=== PATIENT | male | born 2000 | race Caucasian/White ===

== ENCOUNTER 2022-12-21 23:56 | Emergency (ER) | payer OTHER, SELFPAY ==
[2022-12-22] MEDS ORDERED: Sucralfate 1 GM/10 ML UDCUP ONE (02:49)
== END 2022-12-22 04:01 | disposition home or self-care (01) ==
LOC: CSHERS 23:56
DX: R07.9 Chest pain, unspecified (principal); R10.13 Epigastric pain; F17.290 Nicotine dependence, other tobacco product, uncomplicated
CPT/HCPCS: 93005